=== PATIENT | male | born 1960 | race Caucasian/White ===

== ENCOUNTER 2017-02-25 08:20 | Outpatient (CLI) | payer OTHER ==
[2017-02-25 13:53] LABS: BASOPHILS % (AUTO) 0.6 %; EOSINOPHILS # (AUTO) 0.2 10^3/uL (0.0-0.7); EOSINOPHILS % (AUTO) 2.2 %; HCT - HEMATOCRIT 47.1 % (42.0-52.0); HGB - HEMOGLOBIN 16.1 g/dL (14.0-18.0); LYMPHOCYTES # (AUTO) 1.8 10^3/uL (1.5-3.5); LYMPHOCYTES % (AUTO) 23.8 %; MEAN CORPUSCULAR HGB CONC 34.1 g/dL (32.0-36.0); MEAN CORPUSCULAR VOLUME 93.9 fL (80.0-94.0); MEAN PLATELET VOLUME 8.8 fL (7.4-11.4); MONOCYTES # (AUTO) 0.7 10^3/uL (0.0-1.0); MONOCYTES % (AUTO) 9.3 %; NEUTROPHILS # (AUTO) 4.8 10^3/uL (1.5-6.6); NEUTROPHILS % (AUTO) 64.1 %; NUCLEATED RED BLOOD CELLS AUTO 0.1 /100WBC; RED BLOOD COUNT 5.01 10^6/uL (4.70-6.10); UNCORRECTED WHITE BLOOD COUNT 7.4 x10^3/uL; WHITE BLOOD COUNT 7.4 x10^3/uL (4.8-10.8)
[2017-02-25 14:24] LABS: ALBUMIN/GLOBULIN RATIO 1.7 (1.0-2.2); BILIRUBIN,TOTAL 0.8 mg/dL (0.2-1.0); BUN - BLOOD UREA NITROGEN 17 mg/dL (6-20); CARBON DIOXIDE - CO2 28 mmol/L (21-32); CHLORIDE 104 mmol/L (101-111); CHOL/HDL RATIO 5.3 (<5.0); CHOLESTEROL 217 mg/dL; CREATININE 0.9 mg/dL (0.6-1.2); GFR - MDRD 88 (>89); GLUCOSE 117 mg/dL (70-100); HDL CHOLESTEROL 41 mg/dL; LDL/HDL RATIO 3.7 (<3.6); POTASSIUM 4.3 mmol/L (3.5-5.0); SODIUM 139 mmol/L (135-145); TOTAL PROTEIN 6.8 g/dL (6.7-8.2); TRIGLYCERIDES 132 mg/dL; VLDL CHOLESTEROL 26 mg/dL
[2017-02-25 14:39] LABS: HEMOGLOBIN A1C 0.7 g/dL
== END 2017-02-25 23:59 | disposition home or self-care (01) ==
LOC: LAB.WCP 08:20
PROVIDERS: ATTEND Family Medicine
DX: Z00.00 Encounter for general adult medical examination without abnormal findings (principal); E78.5 Hyperlipidemia, unspecified; E11.9 Type 2 diabetes mellitus without complications; Z12.5 Encounter for screening for malignant neoplasm of prostate
CPT/HCPCS: 36415; 80053; 80061; 82043; 83036; 84153; 85025

== ENCOUNTER 2017-08-11 08:00 | Outpatient (CLI) | payer OTHER | END 2017-08-11 08:01 | disposition home or self-care (01) | LOC: LAB.WCP 08:00 | PROVIDERS: ATTEND Physician Assistant Medical | DX: L03.115 Cellulitis of right lower limb (principal) | CPT/HCPCS: 87070; 87205 ==

== ENCOUNTER 2017-11-07 15:31 | Emergency (ER) | payer OTHER ==
[2017-11-07 16:04] LABS: ALBUMIN 4.4 g/dL (3.2-5.5); ALBUMIN/GLOBULIN RATIO 1.6 (1.0-2.2); BILIRUBIN,TOTAL 0.8 mg/dL (0.2-1.0); CALCIUM 9.1 mg/dL (8.5-10.3); TOTAL PROTEIN 7.1 g/dL (6.7-8.2)
[2017-11-07 16:07] LABS: BASOPHILS # (AUTO) 0.1 10^3/uL (0.0-0.1); BASOPHILS % (AUTO) 0.6 %; EOSINOPHILS # (AUTO) 0.1 10^3/uL (0.0-0.7); EOSINOPHILS % (AUTO) 1.5 %; HGB - HEMOGLOBIN 15.7 g/dL (14.0-18.0); LYMPHOCYTES # (AUTO) 2.6 10^3/uL (1.5-3.5); LYMPHOCYTES % (AUTO) 26.5 %; MEAN CORPUSCULAR HEMOGLOBIN 31.1 pg (27.0-31.0); MEAN CORPUSCULAR HGB CONC 33.3 g/dL (32.0-36.0); MEAN CORPUSCULAR VOLUME 93.5 fL (80.0-94.0); MEAN PLATELET VOLUME 8.2 fL (7.4-11.4); MONOCYTES # (AUTO) 0.8 10^3/uL (0.0-1.0); MONOCYTES % (AUTO) 8.4 %; NEUTROPHILS # (AUTO) 6.1 10^3/uL (1.5-6.6); PLT - PLATELET COUNT 200 10^3/uL (130-450); RED BLOOD COUNT 5.06 10^6/uL (4.70-6.10); RED CELL DISTRIBUTION WIDTH 13.3 % (12.0-15.0); WHITE BLOOD COUNT 9.6 x10^3/uL (4.8-10.8)
--- NOTE | 2017-11-07 16:12 | XRAY Report ---
EXAM: CHEST RADIOGRAPHY EXAM DATE: 11/07/2017 04:02 PM. CLINICAL HISTORY: Chest pain for 2 days. COMPARISON: None. TECHNIQUE: 2 views. FINDINGS: Lungs/Pleura: No focal opacities evident. No pleural effusion. No pneumothorax. Normal volumes. Mediastinum: Heart and mediastinal contours are unremarkable. Other: No fracture identified. IMPRESSION: Normal 2-view chest radiography. [facility] Referring Provider Line: [phone] SITE ID: [id number]
--- NOTE | 2017-11-07 16:21 | ED Physician Documentation ---
PD HPI CHEST PAIN - Stated complaint Stated Complaint: CP/ BILAT ARM PX/ JAW PX - Chief complaint Chief Complaint: Cardiac - History obtained from History obtained from: Patient - History of Present Illness Timing - onset: Last night (pain worse for several hours last night), How many weeks ago (3 weeks, worse today) Timing - onset during: Light activity (he has noted chest pain and dyspnea when walking up stairs at work. No edema. No URI symptoms. Has had chest pain and pressure at rest as well at times. Had abrupt worsening of chest pain last evening for several hours, then improved to mild level of pain. Has continued through to this afternoon.) Timing - details: Gradual onset, Still present, Waxing and waning Quality: Pressure, Tightness, Aching, Pain Location: Substernal, Left chest Radiation: Neck, Left upper extremity Improved by: No: Rest Worsened by: Exertion. No: Inspiration, Eating, Movement Associated symptoms: Shortness of air. No: Nausea, Feeling faint / dizzy, General Weakness, Palpitations Similar symptoms before: Has not had sx before Recently seen: Not recently seen Review of Systems Constitutional: denies: Fever, Chills Nose: denies: Rhinorrhea / runny nose, Congestion Throat: denies: Sore throat Cardiac: reports: Chest pain / pressure. denies: Palpitations, Pedal edema, Calf pain Respiratory: reports: Dyspnea. denies: Cough, Hemoptysis, Wheezing GI: denies: Abdominal Pain, Nausea, Vomiting, Diarrhea : denies: Dysuria, Frequency Skin: denies: Rash, Lesions Musculoskeletal: denies: Neck pain, Back pain Neurologic: denies: Focal weakness, Numbness, Near syncope, Altered mental status, Headache Endocrine: denies: Weight loss, Easy bruising / bleeding Immunocompromised: denies: Immunocompromised PD PAST MEDICAL HISTORY - Past Medical History Past Medical History: Yes Cardiovascular: None Respiratory: None, Sleep apnea Endocrine/Autoimmune: Type 2 diabetes GI: None : None HEENT: Chronic vision loss Psych: None Musculoskeletal: None Derm: None, Other drug resistant infections - Past Surgical History Past Surgical History: Yes Ortho: Knee replacement - Present Medications Home Medications: Ambulatory Orders Medication Instructions Recorded Confirmed Naproxen Sodium [Aleve] 440 mg PO DAILY PRN 06/07/14 06/10/14 - Allergies Allergies/Adverse Reactions: Allergies Allergy/AdvReac Type Severity Reaction Status Date / Time tetanus toxoid, adsorbed Allergy Nausea Verified 11/07/17 15:40 - Social History Does the pt smoke?: Yes Smoking Status: Current every day smoker Does the pt drink ETOH?: Yes Does the pt have substance abuse?: No Substance Use and Type: Marijuana - Immunizations Immunizations are current?: Yes - POLST Patient has POLST: No PD ED PE NORMAL - Vitals Vital signs reviewed: Yes - General General: Alert and oriented X 3, No acute distress, Well developed/nourished - HEENT HEENT: Ears normal, Moist mucous membranes, Pharynx benign - Neck Neck: Supple, no meningeal sign, No adenopathy - Cardiac Cardiac: RRR, No murmur - Respiratory Respiratory: Clear bilaterally, Other (no chestwall tenderness) - Abdomen Abdomen: Normal bowel sounds, Soft, Non tender, Non distended - Male Male : Deferred - Rectal Rectal: Deferred - Back Back: No CVA TTP, No spinal TTP - Derm Derm: Normal color, Warm and dry - Extremities Extremities: No deformity, No tenderness to palpate, Normal ROM s pain, No edema , No calf tenderness / cord - Neuro Neuro: Alert and oriented X 3, No motor deficit, Normal speech - Psych Psych: Normal mood, Normal affect Results - Vitals Vitals: Vital Signs - 24 hr 11/07/17 11/07/17 11/07/17 15:36 17:06 17:10 Temperature 35.9 C L Heart Rate 85 79 84 Respiratory 20 16 19 Rate Blood Pressure 158/102 H 120/80 121/98 H O2 Saturation 98 96 96 11/07/17 11/07/17 11/07/17 17:15 17:24 17:38 Temperature Heart Rate 77 75 80 Respiratory 20 14 20 Rate Blood Pressure 129/100 H 132/98 H 135/109 H O2 Saturation 99 99 98 11/07/17 11/07/17 11/07/17 18:24 18:30 18:31 Temperature 36.7 C Heart Rate 77 73 74 Respiratory 16 20 18 Rate Blood Pressure 116/94 H 122/88 H 127/94 H O2 Saturation 97 96 95 Oxygen O2 Source Room air - EKG (time done) 15:37 Rate: Rate (enter#) (82) Rhythm: NSR [place]: Normal Intervals: Normal VT QRS: Normal Ischemia: Normal ST segments. No: ST elevation c/w ischemia, ST depression, Hyperacute T waves Compare to prior EKG: Old EKG unavailable - Labs Labs: Laboratory Tests 11/07/17 11/07/17 11/07/17 15:45 15:45 15:45 WBC 9.6 RBC 5.06 Hgb 15.7 Hct 47.3 MCV 93.5 MCH 31.1 H MCHC 33.3 RDW 13.3 Plt Count 200 MPV 8.2 Neut # 6.1 Lymph # 2.6 Reynolds # 0.8 Eos # 0.1 Baso # 0.1 Absolute Nucleated RBC 0.00 Nucleated RBC % 0.0 Sodium 137 Potassium 3.7 Chloride 101 Carbon Dioxide 25 Anion Gap 11.0 BUN 17 Creatinine 1.0 Estimated GFR (MDRD) 78 L Glucose 109 H Calcium 9.1 Total Bilirubin 0.8 AST 143 H ALT 58 Alkaline Phosphatase 59 Troponin I 37.83 H* Total Protein 7.1 Albumin 4.4 Globulin 2.7 Albumin/Globulin Ratio 1.6 Lipase 62 H - Rads (name of study) chest Radiology: Prelim report reviewed (no acute process), EMP read contemporaneously PD MEDICAL DECISION MAKING - ED course Complexity details: reviewed results, considered differential (concern for ACS. ECG is without ischemic changes. CXR without acute abnormality. However his troponin is unequivocally elevated c/w AMI. Likely unstable angina for few weeks and then AMI last evening. Vitals are stable. ), d/w patient, d/w training consultant (Hospitalist at [facility] (nearest facility with bed available).) - Critical Care Time(min): 30 Time Includes: Direct patient care, Reassess patient, Document care, Coordinate care Data interpretation: Labs, CXR Procedures excluded from critical care time: EKG Departure - Departure Disposition: 02 Transfer Acute Care Hosp Clinical Impression: Chest pain Qualifiers: Chest pain type: precordial pain Qualified Code(s): R07.2 - Precordial pain Myocardial infarction Qualifiers: Myocardial infarction ST status: non-ST elevation myocardial infarction Qualified Code(s): I21.4 - Non-ST elevation (NSTEMI) myocardial infarction Condition: Stable Record reviewed to determine appropriate education?: Yes Discharge Date/Time: 11/07/17 18:55
[2017-11-07] MEDS ORDERED: ASPIRIN CHEW 81 MG TABLET ONE (16:30)
[2017-11-07] MEDS ORDERED: METOPROLOL 5 MG/5 ML VIAL IVP STA (16:42)
[2017-11-07] MEDS ORDERED: HEPARIN 25000UNITS/500ML (D5W) 25,000 UNIT/500 ML BAG IV STA (16:42)
[2017-11-07] MEDS ORDERED: HEPARIN 5,000 UNIT/ML VIAL IVP STA (16:42)
[2017-11-07] MEDS ORDERED: NITROGLYCERIN 50 MG/250 ML 50 MG/250 ML BOTTLE IV STA (16:43)
[2017-11-07] MEDS ORDERED: ATORVASTATIN 40 MG TABLET PO STA (16:43)
[2017-11-07 18:32] VITALS: BP 127/94
== END 2017-11-07 18:55 | disposition short-term general hospital (02) ==
LOC: ED 15:31
DX: I21.4 Non-ST elevation (NSTEMI) myocardial infarction (principal); R07.2 Precordial pain; E11.9 Type 2 diabetes mellitus without complications; F17.200 Nicotine dependence, unspecified, uncomplicated
CPT/HCPCS: 36415; 71046; 80053; 83690; 84484; 85025; 93005; 96374; 96375; 99284; 99291; A9270

== ENCOUNTER 2017-11-07 18:52 | Outpatient (CLI) | payer OTHER | END 2017-11-07 18:53 | disposition short-term general hospital (02) | LOC: EMS 18:52 | PROVIDERS: ATTEND Surgery | DX: R07.9 Chest pain, unspecified (principal) | CPT/HCPCS: A0425; A0426 ==

== ENCOUNTER 2017-12-13 06:44 | Outpatient (CLI) | payer OTHER ==
[2017-12-13 07:25] LABS: ALBUMIN 4.6 g/dL (3.2-5.5); ALKALINE PHOSPHATASE 69 IU/L (42-121); ALT ALANINE AMINOTRANSFERASE 38 IU/L (10-60); AST ASPARTATE AMINOTRANSFERASE 27 IU/L (10-42); BILIRUBIN,TOTAL 0.6 mg/dL (0.2-1.0); BUN - BLOOD UREA NITROGEN 18 mg/dL (6-20); CALCIUM 8.7 mg/dL (8.5-10.3); CARBON DIOXIDE - CO2 25 mmol/L (21-32); CHLORIDE 101 mmol/L (101-111); CHOL/HDL RATIO 4.1 (<5.0); CHOLESTEROL 143 mg/dL; CK- CREATINE KINASE 362 IU/L (22-269); CREATININE 1.1 mg/dL (0.6-1.2); GFR - MDRD 69 (>89); GLUCOSE 123 mg/dL (70-100); HDL CHOLESTEROL 35 mg/dL; LDL CHOLESTEROL,CALCULATED 84 mg/dL; LDL/HDL RATIO 2.4 (<3.6); SODIUM 135 mmol/L (135-145); TOTAL PROTEIN 6.9 g/dL (6.7-8.2); VLDL CHOLESTEROL 24 mg/dL
== END 2017-12-13 06:45 | disposition home or self-care (01) ==
LOC: LAB 06:44
DX: I25.10 Atherosclerotic heart disease of native coronary artery without angina pectoris (principal); R07.2 Precordial pain; G72.2 Myopathy due to other toxic agents
CPT/HCPCS: 36415; 80053; 80061; 82550; 83721

== ENCOUNTER 2018-04-04 06:39 | Outpatient (CLI) | payer OTHER ==
[2018-04-04 07:38] LABS: ALBUMIN/GLOBULIN RATIO 1.4 (1.0-2.2); ALKALINE PHOSPHATASE 73 IU/L (42-121); ALT ALANINE AMINOTRANSFERASE 39 IU/L (10-60); AST ASPARTATE AMINOTRANSFERASE 32 IU/L (10-42); BILIRUBIN,TOTAL 0.6 mg/dL (0.2-1.0); BUN - BLOOD UREA NITROGEN 17 mg/dL (6-20); CALCIUM 8.9 mg/dL (8.5-10.3); CARBON DIOXIDE - CO2 25 mmol/L (21-32); CHLORIDE 102 mmol/L (101-111); CHOL/HDL RATIO 3.4 (<5.0); CHOLESTEROL 143 mg/dL; CREATININE 1.2 mg/dL (0.6-1.2); GFR - MDRD 63 (>89); GLUCOSE 123 mg/dL (70-100); HDL CHOLESTEROL 42 mg/dL; LDL CHOLESTEROL,CALCULATED 88 mg/dL; LDL/HDL RATIO 2.1 (<3.6); SODIUM 135 mmol/L (135-145); TOTAL PROTEIN 6.8 g/dL (6.7-8.2); VLDL CHOLESTEROL 13 mg/dL
[2018-04-04 08:37] LABS: HB2 TOTAL 17.2 g/dL; HEMOGLOBIN A1C 0.7 g/dL; HEMOGLOBIN A1C % 5.9 % (4.6-6.2)
== END 2018-04-04 06:40 | disposition home or self-care (01) ==
LOC: LAB 06:39
PROVIDERS: ATTEND Physician Assistant Medical
DX: E11.9 Type 2 diabetes mellitus without complications (principal)
CPT/HCPCS: 36415; 80053; 80061; 83036; 83721

== ENCOUNTER 2018-06-30 08:34 | Outpatient (CLI) | payer OTHER ==
--- NOTE | 2018-06-30 10:47 | Mammography Report ---
Reason: GYNECOMASTIA Procedure Date: 06/30/2018 Accession Number: [id number] / [id number] Procedure: REYNA - Diagnostic Dig Bilat CPT Code: FULL RESULT: EXAM: Diagnostic Dig Bilat DATE: 06/30/2018 10:40 AM CLINICAL HISTORY: 58-year-old male with family history of breast cancer in the mother in her 40s who notes painless bilateral masses which have been present for approximately one year. TECHNIQUE: Bilateral CC and MLO views were obtained. COMPARISON: None FINDINGS: The breasts demonstrate scattered fibroglandular densities bilaterally. No suspicious mass, architectural distortion or calcifications are identified. A scant amount of normal-appearing glandular breast tissue is identified in the retroareolar region. IMPRESSION: Benign findings RECOMMENDATION: The study is consistent with mild gynecomastia. No further follow-up is required. BIRADS CATEGORY 2: Benign findings STANDARD QUALIFYING STATEMENTS: 1. This examination was not reviewed with the aid of Computer-Aided Detection (CAD). 2. A negative or benign imaging report should not delay biopsy if clinically suspicious findings are present. Consider surgical consultation if warrented. More than 5% of cancers are not identified by imaging. 3. Dense breasts may obscure an underlying neoplasm.
== END 2018-06-30 08:35 | disposition home or self-care (01) ==
LOC: DI 08:34
PROVIDERS: ATTEND Physician Assistant Medical
DX: N62 Hypertrophy of breast (principal); Z80.3 Family history of malignant neoplasm of breast
CPT/HCPCS: 77066

== ENCOUNTER 2018-10-20 04:11 | Outpatient (CLI) | payer BC ==
[2018-10-20 04:53] LABS: ALBUMIN 4.1 g/dL (3.2-5.5); ALBUMIN/GLOBULIN RATIO 1.7 (1.0-2.2); ALKALINE PHOSPHATASE 80 IU/L (42-121); ALT ALANINE AMINOTRANSFERASE 43 IU/L (10-60); AST ASPARTATE AMINOTRANSFERASE 36 IU/L (10-42); BILIRUBIN,TOTAL 0.5 mg/dL (0.2-1.0); BUN - BLOOD UREA NITROGEN 20 mg/dL (6-20); CALCIUM 8.6 mg/dL (8.5-10.3); CARBON DIOXIDE - CO2 24 mmol/L (21-32); CHLORIDE 105 mmol/L (101-111); CHOLESTEROL 144 mg/dL; CREATININE 1.1 mg/dL (0.6-1.2); GFR - MDRD 69 (>89); GLUCOSE 127 mg/dL (70-100); HDL CHOLESTEROL 36 mg/dL; LDL CHOLESTEROL,CALCULATED 83 mg/dL; LDL/HDL RATIO 2.3 (<3.6); SODIUM 136 mmol/L (135-145); TOTAL PROTEIN 6.5 g/dL (6.7-8.2); VLDL CHOLESTEROL 25 mg/dL
[2018-10-20 04:57] LABS: HB2 TOTAL 16.5 g/dL; HEMOGLOBIN A1C 0.73 g/dL; HEMOGLOBIN A1C % 6.2 % (4.6-6.2)
== END 2018-10-20 04:12 | disposition home or self-care (01) ==
LOC: LAB 04:11
PROVIDERS: ATTEND Physician Assistant Medical
DX: E11.9 Type 2 diabetes mellitus without complications (principal)
CPT/HCPCS: 36415; 80053; 80061; 83036; 83721

== ENCOUNTER 2018-11-08 14:41 | Outpatient (CLI) | payer BC ==
[2018-11-08 15:11] LABS: CREATININE 1.2 mg/dL (0.6-1.2)
== END 2018-11-08 14:42 | disposition home or self-care (01) ==
LOC: LAB 14:41
PROVIDERS: ATTEND Orthopaedic Surgery
DX: Z98.890 Other specified postprocedural states (principal)
CPT/HCPCS: 36415; 82565; 84520

== ENCOUNTER 2019-10-14 07:06 | Outpatient (CLI) | payer OTHER ==
--- NOTE | 2019-10-14 11:33 | Ultrasound Report ---
Reason: PVD Procedure Date: 10/14/2019 Accession Number: [id number] / [id number] Procedure: US - Duplex Lwr Ext Arterial Bilat CPT Code: Final Report FULL RESULT: EXAM: BILATERAL LOWER EXTREMITY ARTERIAL DOPPLER ULTRASOUND EXAM DATE: 10/14/2019 10:33 AM. CLINICAL HISTORY: Peripheral vascular disease, history of smoking, diabetes. Left foot coldness. COMPARISON: None. TECHNIQUE: Real-time sonographic vascular imaging was performed by the electric motor fitter, utilizing color-flow, Doppler flow, and spectral analysis. Multiple parts counter representative static images were saved for review. FINDINGS: Right Lower Extremity: MAIL TELLER: PSV 124 cm/sec, triphasic waveform. PSFA: PSV 119 cm/sec, triphasic waveform. MSFA: PSV 96 cm/sec, triphasic waveform. DSFA: PSV 64 cm/sec, triphasic waveform. PFA: PSV 25 cm/sec, triphasic waveform. POP: PSV 31 cm/sec, triphasic waveform. ARELI: PSV 57 cm/sec, triphasic waveform. MICROWAVE ENGINEER: PSV 36 cm/sec, triphasic waveform. KEMAR: PSV 20 cm/sec, triphasic waveform. DPA: PSV 34 cm/sec, triphasic waveform. Left Lower Extremity: MAIL TELLER: PSV 108 cm/sec, triphasic waveform. PSFA: PSV 104 cm/sec, triphasic waveform. MSFA: PSV 83 cm/sec, triphasic waveform. DSFA: PSV 49 cm/sec, triphasic waveform. PFA: PSV 95 cm/sec, triphasic waveform. POP: PSV 35 cm/sec, triphasic waveform. ARELI: PSV 32 cm/sec, triphasic waveform. MICROWAVE ENGINEER: PSV 24 cm/sec, triphasic waveform. KEMAR: PSV 17 cm/sec, triphasic waveform. DPA: PSV 24 cm/sec, triphasic waveform. IMPRESSION: 1. No hemodynamically significant focal stenosis. [facility]
== END 2019-10-14 07:07 | disposition home or self-care (01) ==
LOC: DI 07:06
PROVIDERS: ATTEND Family Medicine
DX: I73.9 Peripheral vascular disease, unspecified (principal)
CPT/HCPCS: 93925

== ENCOUNTER 2020-02-27 07:56 | Outpatient (CLI) | payer OTHER ==
[2020-02-27 13:40] LABS: HB2 TOTAL 17.9 g/dL; HEMOGLOBIN A1C % 7.3 % (4.6-6.2)
[2020-02-27 13:43] LABS: ALBUMIN 4.1 g/dL (3.2-5.5); ALBUMIN/GLOBULIN RATIO 1.6 (1.0-2.2); ALKALINE PHOSPHATASE 69 IU/L (42-121); ALT ALANINE AMINOTRANSFERASE 79 IU/L (10-60); AST ASPARTATE AMINOTRANSFERASE 51 IU/L (10-42); BILIRUBIN,TOTAL 0.7 mg/dL (0.2-1.0); BUN - BLOOD UREA NITROGEN 19 mg/dL (6-20); CALCIUM 9.1 mg/dL (8.5-10.3); CARBON DIOXIDE - CO2 27 mmol/L (21-32); CHLORIDE 103 mmol/L (101-111); CHOLESTEROL 129 mg/dL; CREATININE 1.1 mg/dL (0.6-1.2); GLUCOSE 122 mg/dL (70-100); HDL CHOLESTEROL 32 mg/dL; LDL CHOLESTEROL,CALCULATED 80 mg/dL; LDL/HDL RATIO 2.5 (<3.6); SODIUM 137 mmol/L (135-145); TOTAL PROTEIN 6.7 g/dL (6.7-8.2); VLDL CHOLESTEROL 17 mg/dL
[2020-02-27 14:28] LABS: CREATININE,URINE 44.4 mg/dL
[2020-02-27 14:32] LABS: MICROALBUMIN,URINE < 0.2 mg/dL (0-300.0)
== END 2020-02-27 23:59 | disposition home or self-care (01) ==
LOC: LAB.WCP 07:56
PROVIDERS: ATTEND Physician Assistant Medical
DX: E11.9 Type 2 diabetes mellitus without complications (principal); E78.5 Hyperlipidemia, unspecified; Z12.5 Encounter for screening for malignant neoplasm of prostate
CPT/HCPCS: 36415; 80053; 80061; 82043; 82570; 83036; 83721; 84153; 84443

== ENCOUNTER 2020-06-02 08:00 | Outpatient (CLI) | payer OTHER ==
[2020-06-02 12:22] LABS: ALBUMIN 4.3 g/dL (3.2-5.5); ALBUMIN/GLOBULIN RATIO 1.7 (1.0-2.2); CALCIUM 9.1 mg/dL (8.5-10.3); CREATININE 1.1 mg/dL (0.6-1.2); TOTAL PROTEIN 6.8 g/dL (6.7-8.2)
[2020-06-02 12:36] LABS: HEMOGLOBIN A1c% 7.7 % (4.27-6.07)
== END 2020-06-02 23:59 | disposition home or self-care (01) ==
LOC: LAB.WCP 08:00
PROVIDERS: ATTEND Physician Assistant Medical
DX: E11.9 Type 2 diabetes mellitus without complications (principal)
CPT/HCPCS: 36415; 80053; 83036

== ENCOUNTER 2020-09-02 08:00 | Outpatient (CLI) | payer OTHER ==
[2020-09-02 18:32] LABS: ALBUMIN 4.2 g/dL (3.2-5.5); ALBUMIN/GLOBULIN RATIO 1.7 (1.0-2.2); BILIRUBIN,TOTAL 0.6 mg/dL (0.2-1.0); CALCIUM 9.1 mg/dL (8.5-10.3); CREATININE 1.2 mg/dL (0.6-1.2); TOTAL PROTEIN 6.7 g/dL (6.7-8.2)
[2020-09-02 19:42] LABS: HEMOGLOBIN A1c% 7.5 % (4.27-6.07)
== END 2020-09-02 23:59 | disposition home or self-care (01) ==
LOC: LAB.WCP 08:00
PROVIDERS: ATTEND Physician Assistant Medical
DX: E11.9 Type 2 diabetes mellitus without complications (principal)
CPT/HCPCS: 36415; 80053; 83036

== ENCOUNTER 2020-11-08 09:13 | Outpatient (CLI) | payer OTHER ==
--- NOTE | 2020-11-08 12:00 | Ultrasound Report ---
PROCEDURE: Duplex Lwr Ext Arterial Bilat INDICATIONS: PERIPHERAL VASCULAR DISEASE TECHNIQUE: Color and pulse Doppler interrogation was performed of both lower extremity arterial systems, with im age documentation. COMPARISON: 10/14/2019 FINDINGS: Right lower extremity: Common femoral artery: 132.1 cm/sec, with triphasic flow. Deep femoral artery: 71.8 cm/sec, with triphasic flow. Proximal superficial femoral artery: 141.2 cm/sec, with triphasic flow. Mid superficial femoral artery: 103.7 cm/sec, with triphasic flow. Distal superficial femoral artery: 56.4 cm/sec, with triphasic flow. Popliteal artery: 42.5 cm/sec, with triphasic flow. Posterior tibial artery: 46.3 cm/sec, with triphasic flow. Anterior tibial artery/dorsalis pedis: 50.1/47.8 cm/sec, with triphasic flow. [place]oomis-scale imaging description: Scattered plaque is noted within the common femoral and superficial femoral arteries Left lower extremity: Common femoral artery: 123.0 cm/sec, with triphasic flow. Deep femoral artery: 73.5 cm/sec, with triphasic flow. Proximal superficial femoral artery: 113.3 cm/sec, with triphasic flow. Mid superficial femoral artery: 82.0 cm/sec, with triphasic flow. Distal superficial femoral artery: 69.5 cm/sec, with triphasic flow. Popliteal artery: 50.1 cm/sec, with triphasic flow. Posterior tibial artery: 31.7 cm/sec, with triphasic flow. Anterior tibial artery/dorsalis pedis: 40.6/43.3 cm/sec, with triphasic flow. [place]is-scale imaging description: Scattered plaque is noted within the profunda femoral artery and the proximal superficial femoral artery IMPRESSION: No high-grade stenosis. Mild less than 50% stenosis of the right common femoral and superficial femoral artery. Scattered atherosclerotic plaque is noted on loomis scale imaging within the right common femoral arter y and right superficial femoral artery as along with the left profunda artery and the left proximal s uperficial femoral artery. Reviewed by: Catalino Phelps DO on 11/08/2020 10:58 AM [facility] Approved by: Catalino Phelps DO on 11/08/2020 10:58 AM [facility] Station ID: [id number]
== END 2020-11-08 09:14 | disposition home or self-care (01) ==
LOC: DI 09:13
PROVIDERS: ATTEND Physician Assistant Medical
DX: I73.9 Peripheral vascular disease, unspecified (principal)
CPT/HCPCS: 93925

== ENCOUNTER 2020-11-29 06:53 | Outpatient (CLI) | payer OTHER ==
[2020-11-29 07:26] LABS: ALBUMIN 4.4 g/dL (3.2-5.5); ALBUMIN/GLOBULIN RATIO 1.8 (1.0-2.2); BILIRUBIN,TOTAL 0.9 mg/dL (0.2-1.0); CALCIUM 9.4 mg/dL (8.5-10.3); CREATININE 1.2 mg/dL (0.6-1.2); POTASSIUM 4.7 mmol/L (3.5-5.0); TOTAL PROTEIN 6.8 g/dL (6.7-8.2)
[2020-11-29 12:30] LABS: ESTIMATED AVERAGE GLUCOSE 169 mg/dL (70-100); HEMOGLOBIN A1c% 7.5 % (4.27-6.07)
== END 2020-11-29 06:54 | disposition home or self-care (01) ==
LOC: LAB 06:53
PROVIDERS: ATTEND Physician Assistant Medical
DX: E11.9 Type 2 diabetes mellitus without complications (principal)
CPT/HCPCS: 36415; 80053; 83036

== ENCOUNTER 2021-02-23 08:00 | Outpatient (CLI) | payer OTHER ==
[2021-02-23 12:12] LABS: CREATININE,URINE 31.2 mg/dL
[2021-02-23 12:15] LABS: MICROALBUMIN,URINE < 0.2 mg/dL (0-300.0)
[2021-02-23 12:26] LABS: ALBUMIN 4.4 g/dL (3.2-5.5); ALBUMIN/GLOBULIN RATIO 1.8 (1.0-2.2); ALKALINE PHOSPHATASE 59 IU/L (42-121); ALT ALANINE AMINOTRANSFERASE 54 IU/L (10-60); AST ASPARTATE AMINOTRANSFERASE 37 IU/L (10-42); BUN - BLOOD UREA NITROGEN 16 mg/dL (6-20); CARBON DIOXIDE - CO2 26 mmol/L (21-32); CHLORIDE 104 mmol/L (101-111); CHOL/HDL RATIO 4.2 (<5.0); CHOLESTEROL 140 mg/dL; CREATININE 1.1 mg/dL (0.6-1.2); GFR - MDRD 69 (>89); GLUCOSE 130 mg/dL (70-100); HDL CHOLESTEROL 33 mg/dL; LDL CHOLESTEROL,CALCULATED 94 mg/dL; LDL/HDL RATIO 2.8 (<3.6); POTASSIUM 4.5 mmol/L (3.5-5.0); SODIUM 136 mmol/L (135-145); TOTAL PROTEIN 6.9 g/dL (6.7-8.2); TRIGLYCERIDES 67 mg/dL; VLDL CHOLESTEROL 13 mg/dL
[2021-02-23 12:28] LABS: THYROID STIMULATING HORMONE 1.28 uIU/mL (0.34-5.60)
[2021-02-23 12:47] LABS: ESTIMATED AVERAGE GLUCOSE 166 mg/dL (70-100); HEMOGLOBIN A1c% 7.4 % (4.27-6.07)
== END 2021-02-23 23:59 | disposition home or self-care (01) ==
LOC: LAB.WCP 08:00
PROVIDERS: ATTEND Physician Assistant Medical
DX: E11.9 Type 2 diabetes mellitus without complications (principal); Z12.5 Encounter for screening for malignant neoplasm of prostate
CPT/HCPCS: 36415; 80053; 80061; 82043; 82570; 83036; 83721; 84153; 84443

== ENCOUNTER 2021-05-30 06:29 | Outpatient (CLI) | payer OTHER ==
[2021-05-30 07:18] LABS: BUN - BLOOD UREA NITROGEN 17 mg/dL (6-20); CARBON DIOXIDE - CO2 25 mmol/L (21-32); CHLORIDE 106 mmol/L (101-111); CHOL/HDL RATIO 3.8 (<5.0); CHOLESTEROL 119 mg/dL; CREATININE 1.1 mg/dL (0.6-1.2); GFR - MDRD 69 (>89); GLUCOSE 154 mg/dL (70-100); HDL CHOLESTEROL 31 mg/dL; LDL CHOLESTEROL,CALCULATED 71 mg/dL; LDL/HDL RATIO 2.3 (<3.6); POTASSIUM 4.4 mmol/L (3.5-5.0); SODIUM 140 mmol/L (135-145); TRIGLYCERIDES 86 mg/dL; VLDL CHOLESTEROL 17 mg/dL
[2021-05-30 08:07] LABS: ESTIMATED AVERAGE GLUCOSE 169 mg/dL (70-100); HEMOGLOBIN A1c% 7.5 % (4.27-6.07)
== END 2021-05-30 06:30 | disposition home or self-care (01) ==
LOC: LAB 06:29
PROVIDERS: ATTEND Physician Assistant Medical
DX: E11.9 Type 2 diabetes mellitus without complications (principal)
CPT/HCPCS: 36415; 80048; 80061; 83036; 83721

== ENCOUNTER 2021-08-26 07:51 | Outpatient (CLI) | payer OTHER ==
[2021-08-26 08:38] LABS: BUN - BLOOD UREA NITROGEN 18 mg/dL (6-20); CALCIUM 9.4 mg/dL (8.5-10.3); CARBON DIOXIDE - CO2 30 mmol/L (21-32); CHLORIDE 102 mmol/L (101-111); CHOL/HDL RATIO 4.3 (<5.0); CHOLESTEROL 145 mg/dL; CREATININE 1.2 mg/dL (0.6-1.2); GFR - MDRD 62 (>89); GLUCOSE 146 mg/dL (70-100); HDL CHOLESTEROL 34 mg/dL; LDL CHOLESTEROL,CALCULATED 96 mg/dL; LDL/HDL RATIO 2.8 (<3.6); POTASSIUM 4.6 mmol/L (3.5-5.0); SODIUM 141 mmol/L (135-145); TRIGLYCERIDES 73 mg/dL; VLDL CHOLESTEROL 15 mg/dL
[2021-08-26 09:47] LABS: ESTIMATED AVERAGE GLUCOSE 177 mg/dL (70-100); HEMOGLOBIN A1c% 7.8 % (4.27-6.07)
== END 2021-08-26 07:52 | disposition home or self-care (01) ==
LOC: LAB 07:51
PROVIDERS: ATTEND Physician Assistant Medical
DX: E11.9 Type 2 diabetes mellitus without complications (principal)
CPT/HCPCS: 36415; 80048; 80061; 83036; 83721

== ENCOUNTER 2021-12-07 06:51 | Outpatient (CLI) | payer OTHER ==
[2021-12-07 07:20] LABS: CALCIUM 9.3 mg/dL (8.5-10.3); CREATININE 1.3 mg/dL (0.6-1.2); POTASSIUM 5.2 mmol/L (3.5-5.0)
[2021-12-07 12:24] LABS: ESTIMATED AVERAGE GLUCOSE 166 mg/dL (70-100); HEMOGLOBIN A1c% 7.4 % (4.27-6.07)
== END 2021-12-07 06:52 | disposition home or self-care (01) ==
LOC: LAB 06:51
PROVIDERS: ATTEND Physician Assistant Medical
DX: E11.9 Type 2 diabetes mellitus without complications (principal)
CPT/HCPCS: 36415; 80048; 83036

== ENCOUNTER 2022-03-02 06:58 | Outpatient (CLI) | payer OTHER ==
[2022-03-02 07:29] LABS: CREATININE,URINE 52.8 mg/dL; MICROALBUM/CREATININE RATIO,UR 3.8 ug/mg (<30.0); MICROALBUMIN,URINE 0.2 mg/dL (0-300.0)
[2022-03-02 07:36] LABS: ALBUMIN 4.3 g/dL (3.2-5.5); ALBUMIN/GLOBULIN RATIO 1.6 (1.0-2.2); ALKALINE PHOSPHATASE 48 IU/L (42-121); ALT ALANINE AMINOTRANSFERASE 30 IU/L (10-60); AST ASPARTATE AMINOTRANSFERASE 26 IU/L (10-42); BUN - BLOOD UREA NITROGEN 19 mg/dL (6-20); CARBON DIOXIDE - CO2 23 mmol/L (21-32); CHLORIDE 103 mmol/L (101-111); CHOLESTEROL 110 mg/dL; GFR - MDRD 76 (>89); GLUCOSE 148 mg/dL (70-100); HDL CHOLESTEROL 37 mg/dL; LDL CHOLESTEROL,CALCULATED 61 mg/dL; LDL/HDL RATIO 1.6 (<3.6); POTASSIUM 4.4 mmol/L (3.5-5.0); SODIUM 136 mmol/L (135-145); TRIGLYCERIDES 60 mg/dL; VLDL CHOLESTEROL 12 mg/dL
[2022-03-02 07:47] LABS: THYROID STIMULATING HORMONE 1.44 uIU/mL (0.34-5.60)
[2022-03-02 12:23] LABS: ESTIMATED AVERAGE GLUCOSE 166 mg/dL (70-100); HEMOGLOBIN A1c% 7.4 % (4.27-6.07)
== END 2022-03-02 06:59 | disposition home or self-care (01) ==
LOC: LAB 06:58
PROVIDERS: ATTEND Physician Assistant Medical
DX: E11.9 Type 2 diabetes mellitus without complications (principal); Z12.5 Encounter for screening for malignant neoplasm of prostate
CPT/HCPCS: 36415; 80053; 80061; 82043; 82570; 83036; 83721; 84153; 84443

== ENCOUNTER 2022-06-02 06:33 | Outpatient (CLI) | payer OTHER ==
[2022-06-02 06:55] LABS: CALCIUM 9.5 mg/dL (8.5-10.3); CREATININE 1.3 mg/dL (0.6-1.2); POTASSIUM 4.8 mmol/L (3.5-5.0)
[2022-06-02 08:49] LABS: ESTIMATED AVERAGE GLUCOSE 174 mg/dL (70-100); HEMOGLOBIN A1c% 7.7 % (4.27-6.07)
== END 2022-06-02 06:34 | disposition home or self-care (01) ==
LOC: LAB 06:33
PROVIDERS: ATTEND Physician Assistant Medical
DX: E11.9 Type 2 diabetes mellitus without complications (principal)
CPT/HCPCS: 36415; 80048; 83036

== ENCOUNTER 2022-12-06 06:33 | Outpatient (CLI) | payer OTHER ==
[2022-12-06 07:08] LABS: ALBUMIN 4.2 g/dL (3.2-5.5); ALBUMIN/GLOBULIN RATIO 1.6 (1.0-2.2); ALKALINE PHOSPHATASE 52 IU/L (42-121); ALT ALANINE AMINOTRANSFERASE 36 IU/L (10-60); AST ASPARTATE AMINOTRANSFERASE 27 IU/L (10-42); BUN - BLOOD UREA NITROGEN 17 mg/dL (6-20); CALCIUM 9.3 mg/dL (8.5-10.3); CARBON DIOXIDE - CO2 27 mmol/L (21-32); CHLORIDE 104 mmol/L (101-111); CHOL/HDL RATIO 3.5 (<5.0); CHOLESTEROL 117 mg/dL; GFR - MDRD 76 (>89); GLUCOSE 173 mg/dL (70-100); HDL CHOLESTEROL 33 mg/dL; LDL CHOLESTEROL,CALCULATED 69 mg/dL; LDL/HDL RATIO 2.1 (<3.6); POTASSIUM 4.7 mmol/L (3.5-5.0); SODIUM 138 mmol/L (135-145); TOTAL PROTEIN 6.9 g/dL (6.7-8.2); TRIGLYCERIDES 77 mg/dL; VLDL CHOLESTEROL 15 mg/dL
[2022-12-06 09:49] LABS: ESTIMATED AVERAGE GLUCOSE 189 mg/dL (70-100); HEMOGLOBIN A1c% 8.2 % (4.27-6.07)
== END 2022-12-06 06:34 | disposition home or self-care (01) ==
LOC: LAB 06:33
PROVIDERS: ATTEND Physician Assistant Medical
DX: E11.9 Type 2 diabetes mellitus without complications (principal)
CPT/HCPCS: 36415; 80053; 80061; 83036; 83721

== ENCOUNTER 2023-03-10 06:37 | Outpatient (CLI) | payer OTHER ==
[2023-03-10 07:00] LABS: CREATININE 1.2 mg/dL (0.6-1.2); POTASSIUM 4.5 mmol/L (3.5-5.0)
[2023-03-10 09:30] LABS: ESTIMATED AVERAGE GLUCOSE 169 mg/dL (70-100); HEMOGLOBIN A1c% 7.5 % (4.27-6.07)
== END 2023-03-10 06:38 | disposition home or self-care (01) ==
LOC: LAB 06:37
PROVIDERS: ATTEND Physician Assistant Medical
DX: E11.9 Type 2 diabetes mellitus without complications (principal)
CPT/HCPCS: 36415; 80048; 83036

== ENCOUNTER 2023-06-09 06:39 | Outpatient (CLI) | payer OTHER ==
[2023-06-09 07:09] LABS: ALBUMIN 4.4 g/dL (3.2-5.5); ALKALINE PHOSPHATASE 62 IU/L (42-121); ALT ALANINE AMINOTRANSFERASE 30 IU/L (10-60); AST ASPARTATE AMINOTRANSFERASE 25 IU/L (10-42); BILIRUBIN,TOTAL 0.7 mg/dL (0.2-1.0); BUN - BLOOD UREA NITROGEN 17 mg/dL (6-20); CALCIUM 9.4 mg/dL (8.5-10.3); CARBON DIOXIDE - CO2 28 mmol/L (21-32); CHLORIDE 103 mmol/L (101-111); CHOL/HDL RATIO 3.1 (<5.0); CHOLESTEROL 114 mg/dL; CREATININE 1.1 mg/dL (0.6-1.3); GFR - MDRD 68 (>89); GLUCOSE 151 mg/dL (74-104); HDL CHOLESTEROL 37 mg/dL; LDL CHOLESTEROL,CALCULATED 60 mg/dL; LDL/HDL RATIO 1.6 (<3.6); POTASSIUM 4.3 mmol/L (3.5-4.5); SODIUM 136 mmol/L (135-145); TOTAL PROTEIN 6.6 g/dL (6.4-8.9); TRIGLYCERIDES 87 mg/dL (48-352); VLDL CHOLESTEROL 17 mg/dL
[2023-06-09 11:25] LABS: ESTIMATED AVERAGE GLUCOSE 169 mg/dL (70-100); HEMOGLOBIN A1c% 7.5 % (4.27-6.07)
== END 2023-06-09 06:40 | disposition home or self-care (01) ==
LOC: LAB 06:39
PROVIDERS: ATTEND Physician Assistant Medical
DX: E11.9 Type 2 diabetes mellitus without complications (principal); E78.5 Hyperlipidemia, unspecified; Z12.5 Encounter for screening for malignant neoplasm of prostate
CPT/HCPCS: 36415; 80053; 80061; 83036; 83721; 84153

== ENCOUNTER 2023-07-08 07:34 | Outpatient (CLI) | payer OTHER ==
--- NOTE | 2023-07-08 14:15 | CT Report ---
PROCEDURE: Low Dose Lung Cancer Screen INDICATIONS: TOBACCO USE TECHNIQUE: A CT scan of the chest was performed. Intravenous contrast media was not administered. Images were re corded and evaluated at appropriate window settings. Reformats: axial MIP of the chest, coronal and s agittal. For radiation dose reduction, the following was used: automated exposure control, adjustment of mA and/or kV according to patient size. COMPARISON: None. FINDINGS: Image quality: Excellent. Prior cancer history: No. Lungs and pleura: No pulmonary nodules. No consolidation. No pleural effusion or pneumothorax. Mediastinum: Heart size is normal. No pericardial effusion. No large vessel abnormality. No mediastin al adenopathy by size criteria. A sending aorta is borderline dilated measuring 4 x 3.8 cm (11/29). S evere coronary vessel calcification. Mild calcification of the thoracic aorta. Chest wall and lower neck: Thyroid is unremarkable. No axillary or supraclavicular adenopathy by size . Bones: No acute fracture. No aggressive appearing lytic or blastic osseous lesion. Mild multilevel de generative changes of the spine. Upper Abdomen: Limited noncontrast images of the upper abdomen are unremarkable. IMPRESSION: 1. No pulmonary nodules. Lung RAD: 1 - Negative. Recommendation: Continue annual screening in 12 Months with LDCT 2. Non-Lung Significant Findings: Coronary Arterial Calcification - Moderate or Severe. Consider card iology referral. Reviewed by: Avery Pate MD on 07/08/2023 2:14 PM PDT Approved by: Avery Pate MD on 07/08/2023 2:14 PM PDT Station ID: [id number]
--- NOTE | 2023-07-08 16:55 | Ultrasound Report ---
PROCEDURE: Aorta Screening INDICATIONS: TOBACCO USE TECHNIQUE: Real time scanning was performed of the aorta and iliac arteries, with image documentatio n. COMPARISON: None. FINDINGS: Aorta: Proximal aortic diameter measures 2.6 x 2.8 cm. Mid-aorta measures 2 x 2 cm. Distal aortic diameter is 1.8 x 1.8 cm. Scattered atherosclerotic disease. Iliac arteries: Right common iliac artery measures 1.1 x 1.1 cm. Left common iliac artery measures 1.1 x 1.2 cm. IMPRESSION: 1. No aneurysm. Proximal aorta ectasia measuring 2.6 x 2.8 cm. Recommend repeat imaging in 5 years. 2. Bilateral common iliac arteries are normal in caliber, where visualized. Recommended intervals for follow-up imaging of ectatic aortas and abdominal aortic aneurysms, per ACR consensus guidelines: 2.5-2.9 cm: 5 years 3.0-3.4 cm: 3 years 3.5-3.9 cm: 2 years 4.0-4.4 cm: 1 year 4.5-4.9 cm: 6 months + endovascular referral 5.0-5.5 cm: 3-6 months + endovascular referral Reviewed by: Avery Pate MD on 07/08/2023 4:53 PM PDT Approved by: Avery Pate MD on 07/08/2023 4:53 PM PDT Station ID: [id number]
== END 2023-07-08 07:35 | disposition home or self-care (01) ==
LOC: DI 07:34
PROVIDERS: ATTEND Physician Assistant Medical
DX: Z12.2 Encounter for screening for malignant neoplasm of respiratory organs (principal); Z13.6 Encounter for screening for cardiovascular disorders; F17.210 Nicotine dependence, cigarettes, uncomplicated; I77.819 Aortic ectasia, unspecified site; I25.10 Atherosclerotic heart disease of native coronary artery without angina pectoris

== ENCOUNTER 2024-03-08 06:43 | Outpatient (CLI) | payer OTHER ==
[2024-03-08 07:15] LABS: CALCIUM 9.4 mg/dL (8.5-10.3); CREATININE 1.3 mg/dL (0.6-1.3); POTASSIUM 4.6 mmol/L (3.5-4.5)
[2024-03-08 11:55] LABS: ESTIMATED AVERAGE GLUCOSE 197 mg/dL (70-100); HEMOGLOBIN A1c% 8.5 % (4.27-6.07)
== END 2024-03-08 06:44 | disposition home or self-care (01) ==
LOC: LAB 06:43
PROVIDERS: ATTEND Physician Assistant Medical
DX: E11.9 Type 2 diabetes mellitus without complications (principal)
CPT/HCPCS: 36415; 80048; 83036

== ENCOUNTER 2024-06-07 06:46 | Outpatient (CLI) | payer OTHER ==
[2024-06-07 07:45] LABS: ALBUMIN 4.2 g/dL (3.2-5.5); ALBUMIN/GLOBULIN RATIO 1.9 (1.0-2.2); ALKALINE PHOSPHATASE 51 IU/L (42-121); ALT ALANINE AMINOTRANSFERASE 29 IU/L (10-60); AST ASPARTATE AMINOTRANSFERASE 24 IU/L (10-42); BILIRUBIN,TOTAL 0.8 mg/dL (0.2-1.0); BUN - BLOOD UREA NITROGEN 14 mg/dL (6-20); CALCIUM 9.1 mg/dL (8.5-10.3); CARBON DIOXIDE - CO2 27 mmol/L (21-32); CHLORIDE 105 mmol/L (101-111); CHOL/HDL RATIO 3.2 (<5.0); CHOLESTEROL 95 mg/dL; CREATININE 1.1 mg/dL (0.6-1.3); GFR - MDRD 68 (>89); GLUCOSE 147 mg/dL (74-104); HDL CHOLESTEROL 30 mg/dL; LDL CHOLESTEROL,CALCULATED 49 mg/dL; LDL/HDL RATIO 1.6 (<3.6); POTASSIUM 4.5 mmol/L (3.5-4.5); SODIUM 137 mmol/L (135-145); TOTAL PROTEIN 6.4 g/dL (6.4-8.9); TRIGLYCERIDES 81 mg/dL; VLDL CHOLESTEROL 16 mg/dL
[2024-06-07 10:46] LABS: ESTIMATED AVERAGE GLUCOSE 174 mg/dL (70-100); HEMOGLOBIN A1c% 7.7 % (4.27-6.07)
== END 2024-06-07 06:47 | disposition home or self-care (01) ==
LOC: LAB 06:46
PROVIDERS: ATTEND Physician Assistant Medical
DX: E11.9 Type 2 diabetes mellitus without complications (principal)
CPT/HCPCS: 36415; 80053; 80061; 83036; 83721